=== PATIENT | female | born 1970 | race Caucasian/White ===

== ENCOUNTER 2016-08-18 13:47 | Outpatient (CLI) ==
[2014-06-09 13:23] VITALS: BMI 21.6
[2016-08-18 14:08] LABS: BASOPHILS % (AUTO) 0.5 % (0.0-3.0); EOSINOPHILS # (AUTO) 0.1 K/ul (0.0-0.7); EOSINOPHILS % (AUTO) 1.6 % (0.0-7.0); HEMOGLOBIN 14.6 g/dl (12.0-16.0); IMMATURE GRANULOCYTE % (AUTO) 0.5 % (0.0-5.0); LYMPHOCYTES # (AUTO) 2.3 K/uL (0.60-3.4); MEAN CORPUSCULAR HEMOGLOBIN 30.7 pg (27.0-31.0); MEAN CORPUSCULAR HGB CONC 34.8 (31.8-35.4); MEAN CORPUSCULAR VOLUME 88.2 fl (81.0-99.0); MONOCYTES # (AUTO) 0.5 K/uL (0.4-2.0); MONOCYTES % (AUTO) 8.2 (0-10); NEUTROPHILS # (AUTO) 2.8 K/ul (2.0-6.9); NEUTROPHILS % (AUTO) 49.2; PLATELET COUNT 244 10^3/uL (140-440); RED BLOOD COUNT 4.76 10^6/ul (4.20-5.40); WHITE BLOOD COUNT 5.73 K/ul (4.6-10.2)
[2016-08-18 16:04] LABS: ALBUMIN 3.7 g/dL (3.4-5.0); ALBUMIN/GLOBULIN RATIO 1.03; BILIRUBIN,TOTAL 0.25 mg/dL (0.00-1.20); BUN/CREATININE RATIO 20.51; CALCIUM 9.7 mg/dL (8.2-10.2); CHOL/HDL RATIO 4.3 (4.5-5.5); CREATININE 0.78 mg/dL (0.60-1.30); TOTAL PROTEIN 7.3 g/dL (6.4-8.2)
[2016-08-19 08:02] LABS: FOLLICLE STIMULATING HORMONE 157.7 mIU/mL (.); LUTEINIZING HORMONE 75.3 mIU/mL (.)
== END 2016-08-18 13:48 | disposition home or self-care (01) ==
LOC: LAB 13:47
PROVIDERS: ATTEND Nurse Practitioner Family
DX: F41.8 Other specified anxiety disorders (principal); F43.9 Reaction to severe stress, unspecified; Z72.0 Tobacco use
CPT/HCPCS: 36415; 80053; 80061; 82672; 83001; 83002; 84439; 84443; 85025

== ENCOUNTER 2016-11-20 12:33 | Emergency (ER) ==
[2016-11-20 12:44] VITALS: BP 107/68; TEMP 98.1; BMI 19.3
[2016-11-20 13:04] LABS: BILIRUBIN,URINE Negative (NEGATIVE); KETONES,URINE Negative (NEGATIVE); LEUKOCYTE ESTERASE ,URINE 2+ (NEGATIVE); NITRITE,URINE Positive (NEGATIVE); PROTEIN,URINE 2+ (NEGATIVE); URINE, BLOOD 2+ (NEGATIVE)
[2016-11-20 13:05] LABS: ADD URINE MICROSCOPIC YES
[2016-11-20 13:10] LABS: BASOPHILS % (AUTO) 0.6 % (0.0-3.0); EOSINOPHILS # (AUTO) 0.1 K/ul (0.0-0.7); EOSINOPHILS % (AUTO) 1.2 % (0.0-7.0); HEMATOCRIT 42.3 % (37.0-47.0); HEMOGLOBIN 14.8 g/dl (12.0-16.0); IMMATURE GRANULOCYTE % (AUTO) 0.6 % (0.0-5.0); LYMPHOCYTES # (AUTO) 2.1 K/uL (0.60-3.4); LYMPHOCYTES % (AUTO) 30.9 (10.0-50.0); MEAN CORPUSCULAR VOLUME 88.5 fl (81.0-99.0); MONOCYTES # (AUTO) 0.6 K/uL (0.4-2.0); MONOCYTES % (AUTO) 8.6 (0-10); NEUTROPHILS % (AUTO) 58.1; PLATELET COUNT 244 10^3/uL (140-440); RED BLOOD COUNT 4.78 10^6/ul (4.20-5.40); WHITE BLOOD COUNT 6.87 K/ul (4.6-10.2)
[2016-11-20 13:25] LABS: ALBUMIN 3.8 g/dL (3.4-5.0); ALBUMIN/GLOBULIN RATIO 1.06; BILIRUBIN,TOTAL 0.37 mg/dL (0.00-1.20); BUN/CREATININE RATIO 21.12; CALCIUM 9.5 mg/dL (8.2-10.2); CREATININE 0.71 mg/dL (0.60-1.30); TOTAL PROTEIN 7.4 g/dL (6.4-8.2)
[2016-11-20 13:25] LABS: BACTERIA,URINE 1+ (NOT PRESENT)
[2016-11-20] MEDS ORDERED: LIDOCAINE 1 % AMP 5 ML (SUTURES) IM STA (13:31)
[2016-11-20] MEDS ORDERED: ROCEPHIN IM STA (13:31)
--- NOTE | 2016-11-20 13:36 | ED.PDOC ---
General ED Provider: Dr. MARCIA STALEY Chief Complaint: Back Pain Stated Complaint: BACK PAIN Time Seen by Physician: 12:35 (SEEN WITH NURSING STAFF) Mode of Arrival: Walk-In Information Source: Patient Exam Limitations: No limitations Primary Care Provider: [facility] Nursing and Triage Documentation Reviewed and Agree: Yes Complaint Exam - Complaint/Exam Patient Complains of: Reports: Dysuria Onset/Duration: 3 DAYS Symptoms Are: Still present Timing: Constant Initial Severity: Moderate Current Severity: Mild Character: Reports: Burning Aggravating: Reports: Urination Alleviating: Reports: None Associated Signs and Symptoms: Reports: Dysuria. Denies: Diaphoresis, Back pain , Fever, Hematuria, Constipation, Blood in stool, Rectal pain, Appetite change, Nausea, Vomiting, Decreased urine output, Increased urine frequency, Increased thirst, Decreased activity, Lethargy, Abdominal Pain, Bubble bath use, Vaginal bleeding, Vaginal discharge, Genital swelling, Genital blisters, Retained foreign body Ectopic Risk Factors: Reports: None Ovarian Torsion Risk Factors: Reports: None Surgical Obstruction Risk Factors: Reports: None RH Status: Unknown Related Surgical History: Reports: None Abdominal Findings: Present: None Differential Diagnoses: UTI Review of Systems - Review Of Systems Constitutional: Reports: No symptoms Eyes: Reports: No symptoms Ears, Nose, Mouth, Throat: Reports: No symptoms Respiratory: Reports: No symptoms Cardiac: Reports: No symptoms GI: Reports: No symptoms : Reports: Dysuria Musculoskeletal: Reports: No symptoms Skin: Reports: No symptoms Neurological: Reports: No symptoms Endocrine: Reports: No symptoms Hematologic/Lymphatic: Reports: No symptoms All Other Systems: Reviewed and Negative Past Medical History - Past Medical History Previously Healthy: Yes Endocrine: Reports: None Cardiovascular: Reports: None Respiratory: Reports: None Hematological: Reports: None Gastrointestinal: Reports: None Genitourinary: Reports: None Neuro/Psych: Reports: None Musculoskeletal: Reports: None Cancer: Reports: None Last Menstrual Period: hysterectomy - Surgical History General Surgical History: Reports: None - Family History Family History: Reports: None - Social History Smoking Status: Current every day smoker, Heavy tobacco smoker Hx Substance Use: No Alcohol Screening: None Physical Exam - Physical Exam Appearance: Well-appearing, No pain distress, Well-nourished Eyes: ALEXEI, EOMI, Conjunctiva clear ENT: Ears normal, Nose normal, Oropharynx normal Respiratory: Airway patent, Breath sounds clear, Breath sounds equal, Respirations nonlabored Cardiovascular: RRR, Pulses normal, No rub, No murmur GI/: Soft, Nontender, No masses, Bowel sounds normal, No Organomegaly Musculoskeletal: Normal strength, ROM intact, No edema, No calf tenderness Skin: Warm, Dry, Normal color Neurological: Sensation intact, Motor intact, Reflexes intact, Cranial nerves intact, Alert, Oriented Psychiatric: Affect appropriate, Mood appropriate Critical Care Note - Critical Care Note Total Time (mins): 0 Course - Course Hematology/Chemistry: 11/20/16 13:00 11/20/16 13:00 Orders, Labs, Meds: Lab Review 11/20/16 11/20/16 12:50 13:00 WBC 6.87 RBC 4.78 Hgb 14.8 Hct 42.3 MCV 88.5 MCH 31.0 MCHC 35.0 RDW Coeff of Sonja 12.6 Plt Count 244 Immature Gran % (Auto) 0.6 Neut % (Auto) 58.1 Lymph % (Auto) 30.9 [place] % (Auto) 8.6 Eos % (Auto) 1.2 Baso % (Auto) 0.6 Immature Gran # (Auto) 0.0 Neut # 4.0 Lymph # 2.1 [place] # 0.6 Eos # 0.1 Baso # 0.0 Sodium 140 Potassium 4.0 Chloride 107 Carbon Dioxide 26 Anion Gap 11.0 BUN 15 Creatinine 0.71 Estimated GFR (MDRD) 89.00 BUN/Creatinine Ratio 21.12 Glucose 77 Calcium 9.5 Total Bilirubin 0.37 AST 22 ALT 20 Alkaline Phosphatase 69 Total Protein 7.4 Albumin 3.8 Globulin 3.6 Albumin/Globulin Ratio 1.06 Urine Color Yellow Urine Clarity Turbid Urine pH 5.0 Ur Specific Chambers 1.020 Urine Protein 2+ Urine Glucose (UA) Negative Urine Ketones Negative Urine Blood 2+ Urine Nitrite Positive Urine Bilirubin Negative Urine Urobilinogen 0.2 Ur Leukocyte Esterase 2+ Urine Microscopic WBC Tntc Ur Squamous Epith Cells Tntc Urine Bacteria 1+ Orders Category Date Time Status CBC W/ AUTO DIFF Stat LAB 11/20/16 13:00 Completed COMPREHENSIVE METABOLIC PANEL Stat LAB 11/20/16 13:00 Completed URINALYSIS C & S IF INDICATED Stat LAB 11/20/16 12:50 Completed URINE CULTURE Routine LAB 11/20/16 13:27 Received Ceftriaxone Sodium [Rocephin] MEDS 11/20/16 13:31 Stat 1 gm IM ONCE STA Lidocaine HCl/Pf [Lidocaine 1 % Amp 5 ml (Sutures)] MEDS 11/20/16 13:31 Stat 2.1 ml IM ONCE STA Medications Discontinued Medications Generic Name Dose Route Start Last Admin Trade Name Emily PRN Reason Stop Dose Admin Ceftriaxone Sodium 1 gm 11/20/16 13:31 Rocephin IM 11/20/16 13:32 ONCE STA Lidocaine HCl 2.1 ml 11/20/16 13:31 Lidocaine 1 % Amp 5 Ml (Sutures) IM 11/20/16 13:32 ONCE STA Vital Signs: Temp Pulse Resp BP Pulse Ox 11/20/16 12:34 98.1 F 68 20 107/68 98 Departure - Departure Time of Disposition: 13:35 Disposition: HOME SELF-CARE Discharge Problem: UTI (urinary tract infection) Qualifiers: Urinary tract infection type: site unspecified Instructions: Dysuria (ED) Condition: Good Pt referred to PMD for follow-up: No Allergies/Adverse Reactions: Allergies No Known Allergies Allergy (Verified 11/20/16 12:44) Home Medications: Ambulatory Orders Hydrocodone/Acetaminophen [[place] 10-325 Tablet] 1 each PO TID 11/22/13 Disposition Discussed With: Patient
== END 2016-11-20 14:02 | disposition home or self-care (01) ==
LOC: ED 12:33
DX: N39.0 Urinary tract infection, site not specified (principal); F17.210 Nicotine dependence, cigarettes, uncomplicated
CPT/HCPCS: 36415; 80053; 81001; 85025; 87086; 87186; 99283

== ENCOUNTER 2016-11-25 07:46 | Outpatient (CLI) ==
--- NOTE | 2016-11-25 10:21 | CT ---
EXAM: CT of the chest with contrast History: Tobacco use, chest pain. Comparison: Chest CT 11/19/2013, CT abdomen pelvis 11/25/2016 Technique: Multiplanar CT images through the thorax were obtained following administration of IV co ntrast Findings: Heart size is normal. No pericardial effusion. Great vessels are unremarkable. No path ologically enlarged thoracic lymph nodes. No consolidation. No pleural fluid and no pneumothorax. Mild paraseptal and centrilobular emphysema again noted. No suspicious lung masses or lung nodules. For details in the upper abdomen, please see dedicated CT abdomen pelvis done on the same day. No a cute osseous abnormalities. Impression: No change in the mild paraseptal and centrilobular emphysema. No suspicious lung chloe s or lung nodules.
--- NOTE | 2016-11-25 11:45 | CT ---
EXAM: CT abdomen pelvis with contrast HISTORY: Hematuria, unspecified COMPARISON: 07/03/2015 TECHNIQUE: CT abdomen pelvis performed with intravenous contrast. Coronal and sagittal reformatted images obtained. FINDINGS: Lung bases clear. No free air. No acute abnormalities of the bones. Mild degenerative change in the spine. Heart normal in size. Liver appears normal. Gallbladder appears normal. [place] cre[place] appears normal. Stable sub centimeter hypodensity in the spleen, too small to characterize, p robably cyst or hemangioma. Adrenals appear normal. Kidneys appear normal. Bladder only minimally distended and poorly evaluated, grossly unremarkable. Patient status post hysterectomy. Aorta nor mal in caliber. No lymphadenopathy or ascites. Stomach appears normal. No dilated loops small bow el. Appendix appears normal. Colon unremarkable. Small fat-containing umbilical hernia. No infl ammatory stranding identified in the abdomen pelvis. IMPRESSION: No acute inflammatory process identified in the abdomen or pelvis.
== END 2016-11-25 07:47 | disposition home or self-care (01) ==
LOC: RAD 07:46
PROVIDERS: ATTEND Nurse Practitioner Family
DX: R05 Cough (principal); R31.9 Hematuria, unspecified; R63.4 Abnormal weight loss; Z72.0 Tobacco use

== ENCOUNTER 2017-01-09 11:53 | Emergency (ER) ==
[2017-01-09 11:57] VITALS: BP 102/65; TEMP 96.8; BMI 19.6
== END 2017-01-09 13:10 | disposition left against medical advice (07) ==
LOC: ED 11:53
DX: R39.9 Unspecified symptoms and signs involving the genitourinary system (principal); R10.32 Left lower quadrant pain; R35.0 Frequency of micturition

== ENCOUNTER 2017-01-15 11:27 | Outpatient (CLI) ==
[2017-01-15 13:13] LABS: BILIRUBIN,URINE Negative (NEGATIVE); KETONES,URINE Negative (NEGATIVE); LEUKOCYTE ESTERASE ,URINE Negative (NEGATIVE); NITRITE,URINE Negative (NEGATIVE); PROTEIN,URINE Negative (NEGATIVE); URINE, BLOOD Trace-intact (NEGATIVE)
[2017-01-15 13:21] LABS: ADD URINE MICROSCOPIC YES
[2017-01-15 13:32] LABS: BACTERIA,URINE 2+ (NOT PRESENT)
== END 2017-01-15 11:28 | disposition home or self-care (01) ==
LOC: LAB 11:27
PROVIDERS: ATTEND Nurse Practitioner Family
DX: R31.9 Hematuria, unspecified (principal); R30.9 Painful micturition, unspecified
CPT/HCPCS: 81001; 87086; 87186

== ENCOUNTER 2017-12-06 11:56 | Outpatient (CLI) | END 2017-12-06 11:57 | disposition home or self-care (01) | LOC: RHC-LAB 11:56 | PROVIDERS: ATTEND Nurse Practitioner Family | DX: E78.1 Pure hyperglyceridemia (principal); F41.9 Anxiety disorder, unspecified; Z72.0 Tobacco use | CPT/HCPCS: 36415; 80053; 80061; 84443; 85025 ==

== ENCOUNTER 2018-06-22 15:53 | Outpatient (CLI) ==
--- NOTE | 2018-06-23 08:23 | DI ---
EXAM: CHEST FRONTAL AND LATERAL VIEWS HISTORY: Cough. COMPARISON: None FINDINGS: Heart size and mediastinal contour within normal limits. No acute infiltrates. Virgie l vascularity with no pleural fluid or pneumothorax. The bony thorax has no acute finding. IMPRESSION: No acute process.
== END 2018-06-22 15:54 | disposition home or self-care (01) ==
LOC: RAD 15:53
PROVIDERS: ATTEND Nurse Practitioner Family
DX: R07.89 Other chest pain (principal); R05 Cough; Z72.0 Tobacco use
CPT/HCPCS: 93005; 93010